=== PATIENT | female | born 1970 | race Asian ===

== ENCOUNTER 2021-02-10 08:32 | Emergency (ER) | payer OTHER ==
[~2021-02-10] VITALS: Ht 157.5 cm; Wt 54.4 kg
[2021-02-10 08:44] VITALS: BP 136/73
[2021-02-10] MEDS ORDERED: PROAIR HFA8.5 GM INH ×2 (10:36→10:49)
--- NOTE | 2021-02-10 11:42 | EKG ---
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
== END 2021-02-10 10:47 | disposition home or self-care (01) ==
LOC: ER 08:32
DX: R06.02 Shortness of breath (principal); T50.B95A Adverse effect of other viral vaccines, initial encounter; Z20.822 Contact with and (suspected) exposure to COVID-19; Z88.1 Allergy status to other antibiotic agents; Y92.89 Other specified places as the place of occurrence of the external cause

== ENCOUNTER → 2021-03-18 | Outpatient (CLI) | payer OTHER ==
[~2021-03-18] MED LIST: PROAIR HFA8.5 GM INH
== END ==
LOC: CAT 10:34
PROVIDERS: ATTEND Nurse Practitioner
DX: R06.02 Shortness of breath (principal)

== ENCOUNTER 2021-04-16 08:15 | Emergency (ER) | payer OTHER ==
[~2021-04-16] VITALS: Ht 157.5 cm; Wt 54.4 kg
[2021-04-16 09:28] LABS: ABSOLUTE NEUTROPHILS 3.9 thou/uL (1.4-8.2); BASOPHILS 0.7 % (0.0-2.0); EOSINOPHILS 2.1 % (0.0-3.0); HEMATOCRIT 37.6 % (37.0-47.0); HEMOGLOBIN 12.3 gm/dL (12.0-15.0); LYMPHOCYTES 34.7 % (24.0-44.0); MCH 25.5 pg (26.0-34.0); MCHC 32.8 g/dL (28.0-37.0); MCV 77.8 fL (80.0-100.0); MONOCYTES 7.2 % (1.0-8.0); PLATELET COUNT 274 thou/uL (150-400); POLYS 55.3 % (36.0-66.0); RBC 4.83 mil/uL (4.20-5.00); RDW 14.5 % (10.5-14.5)
[2021-04-16 09:38] LABS: ANION GAP 12 mmol/L (7-16); BUN 16 mg/dL (7-18); CALCIUM 8.7 mg/dL (8.5-10.1); CHLORIDE 107 mmol/L (98-107); CO2 24 mmol/L (21-32); CREATININE 0.9 mg/dL (0.6-1.0); D-DIMER 0.2 ug/mLFEU (0.19-0.50); GLUCOSE 124 mg/dL (74-106); INR 1.01; POTASSIUM 3.4 mmol/L (3.5-5.1); SODIUM 143 mmol/L (136-145)
[2021-04-16 09:48] LABS: ALBUMIN 3.6 g/dL (3.4-5.0); DIRECT BILIRUBIN < 0.1 mg/dL (<0.1-0.2); SGOT 12 U/L (15-37); SGPT 26 U/L (30-65); TOTAL BILIRUBIN 0.3 mg/dL (0.2-1.0); TOTAL PROTEIN 7.1 g/dL (6.4-8.2)
--- NOTE | 2021-04-16 13:19 | EKG ---
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
[2021-04-16 15:09] VITALS: BP 160/52
--- NOTE | 2021-04-19 07:26 | EKG ---
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1970 Requested By: Sadaf Coronel Order Number: [id number] MD: Franklin Downey Measurements Intervals [place] Rate: 75 P: -2 CT: 162 QRS: -4 QRSD: 101 T: 13 QT: 391 QTc: 437 Interpretive Statements Sinus rhythm Left ventricular hypertrophy Borderline T abnormalities, inferior leads Baseline wander in lead(s) II,III,aVF,V1,V3,V4,V5,V6 Compared to ECG 04/16/2021 08:55:53 T-wave abnormality now present Electronically Signed On 04-19-2021 7:26:23 CDT by Franklin Downey [email or web address] <ELECTRONICALLY SIGNED> By: Franklin Downey MD, FACC 04/19/21 0726 1349 1349 Franklin Downey MD, FACC /EPI
== END 2021-04-16 15:22 | disposition home or self-care (01) ==
LOC: ER 08:15
PROVIDERS: Emergency Medicine
DX: R06.00 Dyspnea, unspecified (principal); I10 Essential (primary) hypertension; J45.909 Unspecified asthma, uncomplicated; Z98.890 Other specified postprocedural states; Z79.51 Long term (current) use of inhaled steroids; Z88.1 Allergy status to other antibiotic agents; Z91.018 Allergy to other foods

== ENCOUNTER → 2021-05-11 | Outpatient (CLI) | payer OTHER | LOC: SJCVCIMAG 07:41 | PROVIDERS: ATTEND Internal Medicine | DX: I08.3 Combined rheumatic disorders of mitral, aortic and tricuspid valves (principal); R06.02 Shortness of breath; J45.909 Unspecified asthma, uncomplicated; I10 Essential (primary) hypertension; F41.9 Anxiety disorder, unspecified; Z79.899 Other long term (current) drug therapy; Z88.1 Allergy status to other antibiotic agents; Z88.2 Allergy status to sulfonamides ==

== ENCOUNTER → 2021-07-07 | Outpatient (CLI) | payer OTHER | LOC: CAT 07-06 10:45 | PROVIDERS: ATTEND Pediatrics | DX: R06.00 Dyspnea, unspecified (principal); U09.9 Post COVID-19 condition, unspecified ==